=== PATIENT | female | born 1990 | race Caucasian/White ===

== ENCOUNTER → 2021-07-26 13:22 | Outpatient (CLI) | payer BC, SELFPAY ==
--- NOTE | ~2021-07-26 | US_ITS ---
EXAMINATION: US OB <= 14 weeks fetus DATE: 07/26/2021 13:56 INDICATION: First trimester dating TECHNIQUE: Real-time pelvic transabdominal and transvaginal ultrasound was performed. COMPARISON: None. FINDINGS: The uterus measures 16.1 x 5.8 x 9.9 cm. There is an intrauterine gestational sac. h eart motion is identified measuring 154 beats per minute (bpm) by M-mode Doppler. The crown rum p length measures 5.7 cm , which correlates with an estimated gestational age of 12 weeks and 2 day(s ) (+/-) 8 day(s). The right ovary measures 4.3 x 3.4 x 3.5 cm. The left ovary measures 2.8 x 1.8 x 2.3 cm. There is nor mal vascular flow in the ovaries. There is no free fluid in the pelvis. IMPRESSION: 1. Live intrauterine with an estimated gestational age of 12 weeks and 2 day(s) (+/-) 8 day (s) and an estimated delivery date of 02/05/2021. Reviewed, dictated and finalized at location F. TIVE TECHNOLOGIST IMPRESSION: 1. Live intrauterine with an estimated gestational age of 12 weeks an d 2 day(s) (+/-) 8 day(s) and an estimated delivery date of 02/05/2021.
== END ==
PROVIDERS: Visit Provider Obstetrics & Gynecology Gynecology
DX: Z34.91 Encounter for supervision of normal pregnancy, unspecified, first trimester (principal); Z3A.12 12 weeks gestation of pregnancy
CPT/HCPCS: 76801

== ENCOUNTER → 2021-08-30 14:44 | Outpatient (CLI) | payer BC, SELFPAY ==
--- NOTE | ~2021-08-30 | US_ITS ---
EXAMINATION: US OB /maternal detail DATE: 08/30/2021 15:16 INDICATION: Assess anatomy during second trimester TECHNIQUE: Multiple obstetric sonographic images performed. FINDINGS: There is a single living fetus in variable presentation. The placenta is anterior and not low-lying caudal margin 2.8 cm from the internal cervical os. Normal amniotic fluid volume. heart rate o f 153 beats per minute. The following anatomy was identified as normal: Ventricles, choroid plexus, falx and cava septum pellucidum Cerebellum and cisterna magna Nuchal fold Upper lip Spine 4 chamber heart. (Left and right ventricular outflow tracts were unable to be clearly delineated) Diaphragm The stomach was unable to be clearly visualized and may have been decompressed Kidneys Bladder 3 vessel cord and cord insertion Bilateral upper and lower extremities including hands and feet The following biometric data were obtained: BPD: 4.1 cm -> 18 weeks 2 days Head circumference: 15.7 cm -> 18 weeks 4 days Abdominal circumference: 12.6 cm -> 18 weeks 1 days Femur length: 2.7 cm -> 18 weeks 2 days These measurements are concordant. Head circumference to abdominal circumference ratio: 1.25 (normal range 1.08-1.27). Estimated weight: 233 g (+/-) 35 g. or 8 oz. (+/-) 1 oz. IMPRESSION: 1. Single living fetus with variable presentation with heart rate of 153 bpm. 2. Estimated weight is 95th percentile by Hadlock criteria when 02/05/2022 is used as the ONDINA b ased upon crown-rump length measurement on prior ultrasound dated 07/26/2021. Please correlate with c linical information or earlier ultrasounds for most accurate ONDINA. 3. Nonvisualized stomach and left and right ventricular outflow tract views. Otherwise normal a natomic survey. Reviewed, dictated and finalized at location A. FINISHER IMPRESSION: 1. Single living fetus with variable presentation with heart rate of 153 bpm. 2. Estimated weight is 95th percentile by Hadlock criteria when 2 is used as the ONDINA based upon crown-rump length measurement on prior ultrasou nd dated 07/26/2021. Please correlate with clinical information or earlier ultr asounds for most accurate ONDINA. 3. Nonvisualized stomach and left and right ventricular outflow tract views. Ot herwise normal anatomic survey.
== END ==
PROVIDERS: Visit Provider Nurse Practitioner
DX: Z34.92 Encounter for supervision of normal pregnancy, unspecified, second trimester (principal); Z3A.18 18 weeks gestation of pregnancy
CPT/HCPCS: 76805

== ENCOUNTER → 2021-10-03 12:58 | Outpatient (CLI) | payer BC, SELFPAY ==
--- NOTE | ~2021-10-03 | US_ITS ---
EXAMINATION: US OB follow up DATE: 10/03/2021 13:19 INDICATION: Incomplete anatomic survey during second trimester TECHNIQUE: Real-time ultrasound of the pelvis was performed. The interpreting radiologist was not pre sent for the study. COMPARISON: 08/30/2021 FINDINGS: There is a single living fetus in vertex presentation. The placenta is anterior and 7.5 cm from the internal cervical os. cardiac activity and movement are noted. heart rate is 133 beats per minute (bpm). The amniotic fluid index is subjectively normal. The heart, diap hragm, and stomach appear normal. The following biometric data were obtained: Biparietal diameter (BPD): 5.7 cm; head circumference (HC): 21.0 cm; abdominal circumference (AC): 17 .1 cm; femur length (FL): 3.6 cm. Head circumference to abdominal circumference ratio is greater than two standard deviations above the mean. These measurements are otherwise. Estimated weight is 473 g +/- 70 g, which correlates with the 40th percentile when 02/05/2022 is used as estimated date of delivery. As single measurements, these parameters are each equal to the following estimated gestational ages w ith ranges of +/- 2 standard deviations: BPD: 23 weeks 4 days ( 21 weeks 26 days - 25 weeks 2 days). HC: 23 weeks 1 days ( 21 weeks 5 days - 24 weeks 4 days). AC: 22 weeks 1 days ( 20 weeks 0 days - 24 weeks 1 days). FL: 21 weeks 4 days ( 19 weeks 6 days - 23 weeks 3 days). estimated gestational age based solely on measurements from this exam is 22 weeks 4 days +/- 1 weeks 4 days. IMPRESSION: 1. Single living fetus in vertex presentation. 2. Estimated weight is 473 g +/- 70 g, which correlates with the 40th percentile when 02/05/2022 is used as estimated date of delivery. 3. Head circumference to abdominal circumference ratio is greater than two standard deviations above the mean. 4. Normal appearing heart, stomach, and diaphragm. Reviewed, dictated and finalized at location B. PMENT SERVICE LEAD IMPRESSION: 1. Single living fetus in vertex presentation. 2. Estimated weight is 473 g +/- 70 g, which correlates with the 40th per centile when 02/05/2022 is used as estimated date of delivery. 3. Head circumference to abdominal circumference ratio is greater than two german dard deviations above the mean. 4. Normal appearing heart, stomach, and diaphragm.
== END ==
PROVIDERS: Visit Provider Obstetrics & Gynecology Gynecology
DX: Z36.2 Encounter for other antenatal screening follow-up (principal); Z3A.22 22 weeks gestation of pregnancy
CPT/HCPCS: 76816

== ENCOUNTER 2021-11-15 13:57 | Outpatient (CLI) | payer BC, SELFPAY ==
[2021-11-15 15:57] LABS: Hematocrit 37.7 % (37.0-47.0)
[2021-11-15 16:13] LABS: Glucose 1 Hour PP 50gm Dose 120 mg/dL
[2021-11-15 16:48] LABS: HIV 1/2 Ab P24 Ag Result Negative (Negative)
[2021-11-15 20:07] LABS: Vitamin D 25 Hydroxy 42.5 ng/mL
== END 2021-11-15 13:58 | disposition home or self-care (01) ==
LOC: ANHLAB 13:59
PROVIDERS: Visit Provider Nurse Practitioner
DX: Z34.92 Encounter for supervision of normal pregnancy, unspecified, second trimester (principal); Z3A.00 Weeks of gestation of pregnancy not specified
CPT/HCPCS: 36415; 82306; 82947; 85014; 85018; 85461; 86703; G0432

== ENCOUNTER 2021-11-24 13:02 | Observation (INO) | payer BC, SELFPAY ==
[2021-11-24] VITALS (36 sets, daily range): BP systolic 111–131; BP diastolic 49–72; PULSE 73–124; TEMP 36.8–37; O2SAT 97–100; BMI 39.7
--- NOTE | 2021-11-24 13:42 | OBADM ---
This patient, Bailey Campos, admitted to the OB room 113 for observation for contractions and nausea. Patient/family oriented to hospital policies and general routines including ID bracelet, bed and alarms, visiting hours, pain management, procedures, bathroom and other care routines, personal items, smoking policy, room service/diet, and visiting hours. Patient/Family are encouraged to report perceived risks to care and to ask questions if they do not understand what they are told or what they should do.
[2021-11-24 13:56] LABS: Add Urine Microscopic? YES; Appearance Urine Cloudy (Clear); Bilirubin Urine Negative (Negative); Blood Urine Negative (Negative); Color Urine Yellow (Yellow); Glucose Urine UA Negative (Negative); Ketones Urine Negative (Negative); Leukocyte Esterase Ur Negative LEU/UL (Negative); Mucus Urine Rare /lpf; Nitrate Urine Negative (Negative); Protein Urine Negative (Negative); RBC Urine 0-2 /hpf (0-2); Specific Grav Ur 1.011 (1.001-1.035); Squamous Epithelial Cell Urine Few /hpf (Few); Urobilinogen Urine Negative mg/dL (<2.0); WBC Urine 0-3 /hpf
--- NOTE | 2021-11-24 14:02 | PC.NURSE ---
Dr. Weir returned page and informed of pt's symptoms, frequent mild contractions and uterine irritability, UA results. Pt hasn't felt like drinking much today due to her nausea. Orders received.
[2021-11-24] MEDS: TERBUTALINE SULFATE 1 MG/ML VIAL 0.25 MG SUB-Q ×2 (14:32→16:26)
[2021-11-24] MEDS: LACTATED RINGERS 1,000 ML 999 ML IV CONT (14:54)
[2021-11-24] MEDS: ONDANSETRON INJ 4 MG/2 ML VIAL IV PUSH (14:55)
--- NOTE | 2021-11-24 15:35 | PC.NURSE ---
Nausea much better. Popcicle, water, and saltines given.
[2021-11-24] MEDS: LACTATED RINGERS 1,000 ML 150 ML IV CONT (16:03)
--- NOTE | 2021-11-24 16:50 | PC.NURSE ---
Dr. Weir called the unit and updated that pt is feeling better, but was recently given a 2nd dose of Brethine due to an increase in uterine activity even after pt had voided.
--- NOTE | 2021-11-28 13:52 | PM.OBTRLD ---
OB - Triage/Final Diagnosis Visit Information Reason for evaluation: threatened labor Comments/Additional reasons for admission: I have assessed the risk for this patient, Bailey Campos, and determined that she would benefit from observation care. Evaluation Laboratory results: Laboratory Tests 11/24/21 13:33 Urine Color Yellow Urine Appearance Cloudy H Urine pH 7.0 Ur Specific [place] 1.011 Urine Protein Negative Urine Glucose (UA) Negative Urine Ketones Negative Ur Blood (Man) Negative Urine Nitrate Negative Urine Bilirubin Negative Urine Urobilinogen Negative Leukocyte Esterase Rfl Negative Urine RBC 0-2 Urine WBC 0-3 Ur Squamous Epith Cells Few Urine Mucus Rare
== END 2021-11-24 20:29 | disposition home or self-care (01) ==
PROVIDERS: Admitting Provider Obstetrics & Gynecology Gynecology; Visit Provider Obstetrics & Gynecology Gynecology
DX: O47.03 False labor before 37 completed weeks of gestation, third trimester (principal); Z3A.30 30 weeks gestation of pregnancy
CPT/HCPCS: 81001; 96361; 96372; 96374; G0378; G0379; J2405; J3105; J7120

== ENCOUNTER 2021-12-05 08:16 | Outpatient (RCR) | payer BC, SELFPAY ==
[2021-12-05] MEDS: RHO(D) IMMUNE GLOBULIN 300 MCG/2 ML SYRINGE IM (12:18)
== END 2022-02-22 08:37 | disposition home or self-care (01) ==
LOC: ANHLAB 08:16
PROVIDERS: Visit Provider Obstetrics & Gynecology Gynecology
DX: O36.0990 Maternal care for other rhesus isoimmunization, unspecified trimester, not applicable or unspecified (principal); Z3A.00 Weeks of gestation of pregnancy not specified
CPT/HCPCS: 36415; 85461; 90384; 96372; J2790

== ENCOUNTER 2022-01-23 15:23 | Observation (INO) | payer BC, SELFPAY ==
[2022-01-23 15:34] VITALS: BP 116/68; PULSE 82; RESP 17; TEMP 36.3
[2022-01-23 17:45] VITALS: BMI 40.1
--- NOTE | 2022-01-23 17:46 | LDADM ---
This patient, Bailey Campos, was admitted to Labor/Delivery/Recovery 108 on 01/23/22 at 15:23. Plans for labor, pain management and were discussed with patient. Patient/family oriented to hospital policies and general routines including ID bracelet, bed and alarms, visiting hours, pain management, procedures, bathroom and other care routines, personal items, smoking policy, room service/diet and guest tray routines, security routines, and visiting hours. Patient/Family are encouraged to report perceived risks to care and to ask questions if they do not understand what they are told or what they should do. See OBIX for further documentation.
--- NOTE | 2022-01-26 07:51 | PM.OBTRLD ---
OB - Triage/Final Diagnosis Visit Information Reason for evaluation: threatened labor Comments/Additional reasons for admission: I have assessed the risk for this patient, Bailey Campos, and determined that she would benefit from observation care.
== END 2022-01-23 18:00 | disposition home or self-care (01) ==
PROVIDERS: Admitting Provider Obstetrics & Gynecology Gynecology; Visit Provider Obstetrics & Gynecology Gynecology
DX: O47.9 False labor, unspecified (principal); Z3A.00 Weeks of gestation of pregnancy not specified
CPT/HCPCS: G0378; G0379

== ENCOUNTER 2022-01-26 21:46 | Observation (INO) | payer BC, SELFPAY ==
[2022-01-26 22:05] VITALS: BP 116/70; PULSE 87
[2022-01-26 22:16] VITALS: BP 110/59; PULSE 81
[2022-01-26 22:30] VITALS: BMI 40.1
[2022-01-26 22:31] VITALS: BP 110/60; PULSE 78
[2022-01-26 22:49] LABS: Basophils Absolute Auto 0.1 K/mm3 (0.0-0.1); Basophils Percent Auto 0.3 % (0.2-1.2); Eosinophils Absolute Auto 0.1 K/mm3 (0-0.3); Eosinophils Percent Auto 0.9 % (0-4.4); Hematocrit 35.2 % (37.0-47.0); Hemoglobin 11.6 g/dL (12.0-15.0); Immature Granulocyte Absolute 0.11 K/mm3 (0.00-0.031); Immature Granulocyte Percent A 0.7 % (0-0.5); Lymphocytes Absolute Auto 3.42 K/mm3 (0.9-3.2); Lymphocytes Percent Auto 22.9 % (18.3-44.2); Mean Corpuscular Hemoglobin 27.2 pg (26-34); Mean Corpuscular Volume 82.4 fl (80-100); Mean Platelet Volume 9.7 fl (7.4-10.4); Monocytes Absolute Auto 1.2 K/mm3 (0.1-0.6); Monocytes Percent Auto 7.8 % (2.6-8.5); Neutrophils Absolute Auto 10.1 K/mm3 (1.3-6.7); Neutrophils Percent Auto 67.4 % (45.5-73.1); Platelet Count Result 315 k/mm3 (150-375); Red Blood Count 4.27 M/mm3 (4.2-5.4); Red Cell Distribution Width 13.5 % (11.5-14.5); White Blood Count 14.9 K/mm3 (4.5-10.0)
--- NOTE | 2022-01-27 01:59 | P.PNOB_ITS ---
OB - Triage/Final Diagnosis Visit Information Reason for evaluation: other (; fell) Comments/Additional reasons for admission: I have assessed the risk for this patient, Bailey Campos, and determined that she would benefit from observation care. Evaluation Laboratory results: Laboratory Tests 01/26/22 01/26/22 22:32 22:32 WBC 14.9 H RBC 4.27 Hgb 11.6 L Hct 35.2 L MCV 82.4 MCH 27.2 MCHC 33.0 RDW 13.5 Plt Count 315 MPV 9.7 Immature Gran % (Auto) 0.7 H Neut % (Auto) 67.4 Lymph % (Auto) 22.9 [place] % (Auto) 7.8 Eos % (Auto) 0.9 Baso % (Auto) 0.3 Lymph # (Auto) 3.42 H [place] # (Auto) 1.2 H Eos # (Auto) 0.1 Baso # (Auto) 0.1 Abs Immat Gran (auto) 0.11 H Absolute Neuts (auto) 10.1 H Absolute Nucleated RBC 0.0 Nucleated RBC % 0.0 Blood Type O Negative Antibody Screen Negative Screen Not Reportable Baby's Blood Type Not Reportable Baby's JANET Not Reportable KB Hemoglobin Negative Doses of RhIg Required 1 Vital signs: Vital Signs - 24 hr 01/26/22 22:05 01/26/22 22:16 01/26/22 22:31 Pulse Rate 87 81 78 Blood Pressure 116/70 110/59 L 110/60
--- NOTE | 2022-01-27 03:17 | OBADM ---
This patient, Bailey Campos, admitted to the OB room OB Post 116 for observation. Patient/family oriented to hospital policies and general routines including ID bracelet, bed and alarms, visiting hours, pain management, procedures, bathroom and other care routines, personal items, smoking policy, room service/diet, and visiting hours. Patient/Family are encouraged to report perceived risks to care and to ask questions if they do not understand what they are told or what they should do.
== END 2022-01-27 03:30 | disposition home or self-care (01) ==
PROVIDERS: Admitting Provider Obstetrics & Gynecology Gynecology; Visit Provider Obstetrics & Gynecology Gynecology
DX: Z04.3 Encounter for examination and observation following other accident (principal); Z3A.39 39 weeks gestation of pregnancy; W19.XXXA Unspecified fall, initial encounter
CPT/HCPCS: 36415; 85025; 85460; 85461; 90384; 96372; G0378; G0379; J2790

== ENCOUNTER 2022-01-31 18:09 | Inpatient (IN) | payer BC, SELFPAY ==
[2022-01-31] VITALS (41 sets, daily range): BP systolic 108–131; BP diastolic 47–84; PULSE 63–102; RESP 16–18; TEMP 36.5–36.7; O2SAT 98–100; BMI 40.1
--- NOTE | 2022-01-31 18:55 | LDADM ---
This patient, Bailey Campos, was admitted to Labor/Delivery/Recovery 107 on 01/31/22 at 18:09. Plans for labor, pain management and were discussed with patient. Patient/family oriented to hospital policies and general routines including ID bracelet, bed and alarms, visiting hours, pain management, procedures, bathroom and other care routines, personal items, smoking policy, room service/diet and guest tray routines, security routines, and visiting hours. Patient/Family are encouraged to report perceived risks to care and to ask questions if they do not understand what they are told or what they should do. See OBIX for further documentation.
[2022-01-31 19:10] LABS: Basophils Percent Auto 0.2 % (0.2-1.2); Eosinophils Absolute Auto 0.1 K/mm3 (0-0.3); Eosinophils Percent Auto 0.6 % (0-4.4); Hematocrit 38.3 % (37.0-47.0); Hemoglobin 12.3 g/dL (12.0-15.0); Immature Granulocyte Absolute 0.08 K/mm3 (0.00-0.031); Immature Granulocyte Percent A 0.5 % (0-0.5); Lymphocytes Absolute Auto 3.12 K/mm3 (0.9-3.2); Lymphocytes Percent Auto 20.6 % (18.3-44.2); Mean Corpuscular HGB Conc 32.1 g/dl (32-36); Mean Corpuscular Hemoglobin 26.7 pg (26-34); Mean Corpuscular Volume 83.3 fl (80-100); Mean Platelet Volume 10.4 fl (7.4-10.4); Monocytes Absolute Auto 0.9 K/mm3 (0.1-0.6); Monocytes Percent Auto 6.1 % (2.6-8.5); Neutrophils Absolute Auto 10.9 K/mm3 (1.3-6.7); Platelet Count Result 334 k/mm3 (150-375); Red Cell Distribution Width 13.8 % (11.5-14.5); White Blood Count 15.1 K/mm3 (4.5-10.0)
[2022-01-31] MEDS: miSOPROStol 25 MCG TABLET VAGINAL (19:50)
--- NOTE | 2022-01-31 22:53 | WPDANESEPP ---
Anes - Eval Pre Procedure Procedure: labor epidural Date/Time: 01/31/22 22:53 Surgeon: alissa Pre Op Diagnosis: Induction of Labor Patient Data Age: 31 Gender: F Height: 1.63 m Weight: 106 kg Last Vital Signs Temp 36.6 C 01/31/22 19:00 Pulse 82 01/31/22 22:31 BP 116/65 01/31/22 22:31 O2 Del Method Room Air 01/31/22 18:51 Allergies Allergy/AdvReac Type Severity Reaction Status Date / Time No Known Allergies Allergy Verified 11/24/21 13:40 Home Medications Medication Instructions Recorded Confirmed Type ergocalciferol (vitamin D2) 1,250 50,000 unit PO WEEKLY 11/24/21 01/31/22 History mcg (50,000 unit) capsule vit no.95-ferrous 1 tablet PO DAILY 11/24/21 01/31/22 History fumarate 28 mg-folic acid 800 mcg tablet () Laboratory Tests 01/31/22 01/31/22 01/31/22 18:47 18:47 19:45 WBC 15.1 K/mm3 H K/mm3 (4.5-10.0) RBC 4.60 M/mm3 M/mm3 (4.2-5.4) Hgb 12.3 g/dL g/dL (12.0-15.0) Hct 38.3 % % (37.0-47.0) MCV 83.3 fl fl (80-100) MCH 26.7 pg pg (26-34) MCHC 32.1 g/dl g/dl (32-36) RDW 13.8 % % (11.5-14.5) Plt Count 334 k/mm3 k/mm3 (150-375) MPV 10.4 fl fl (7.4-10.4) Immature Gran % (Auto) 0.5 % % (0-0.5) Neut % (Auto) 72.0 % % (45.5-73.1) Lymph % (Auto) 20.6 % % (18.3-44.2) [place] % (Auto) 6.1 % % (2.6-8.5) Eos % (Auto) 0.6 % % (0-4.4) Baso % (Auto) 0.2 % % (0.2-1.2) Lymph # (Auto) 3.12 K/mm3 K/mm3 (0.9-3.2) [place] # (Auto) 0.9 K/mm3 H K/mm3 (0.1-0.6) Eos # (Auto) 0.1 K/mm3 K/mm3 (0-0.3) Baso # (Auto) 0.0 K/mm3 K/mm3 (0.0-0.1) Abs Immat Gran (auto) 0.08 K/mm3 H K/mm3 (0.00-0.031) Absolute Neuts (auto) 10.9 K/mm3 H K/mm3 (1.3-6.7) Absolute Nucleated RBC 0.0 K/mm3 K/mm3 (0.0-0.012) Nucleated RBC % 0.0 % % (0.0-0.2) RPR Pending Blood Type O Negative Antibody Screen Positive Antibody Identification Pending Antigen Identification Pending JANET, IgG Interpret Pending JANET, Poly Interpret Pending JANET, Complement Interp Pending Patient hx anesthesia problems: none Family hx anesthesia problems: none Results Review: All pre-operative results and documents have been reviewed as part of the pre-operative evaluation. [facility] Family History Family History (Updated 01/05/22 @ 14:36 by Mukesh Canseco RN) Mother Cancer Hypotension Grandparent Diabetes mellitus Social History Social History Smoking status: Former smoker Tobacco type: cigarettes Second hand tobacco smoke exposure: No Smoking end date: 05/29/21 Substance use: never Spiritual care concerns: No Exam Day of Procedure 01/31/22 22:53
[2022-01-31] MEDS: LACTATED RINGERS 1,000 ML 125 ML IV CONT (22:55)
[2022-02-01] VITALS (356 sets, daily range): BP systolic 43–145; BP diastolic 16–101; PULSE 40–190; RESP 14–18; TEMP 36.2–37.7; O2SAT 90–100
[2022-02-01] MEDS: LACTATED RINGERS 1,000 ML 125 ML IV CONT ×5 (00:13→17:49)
[2022-02-01] MEDS: ONDANSETRON INJ 4 MG/2 ML VIAL IV PUSH ×3 (00:22→18:29)
[2022-02-01] MEDS: OXYTOCIN 30 UNITS/NS 500 ML 30 UNITS/500 ML BAG IV CONT (01:40)
[2022-02-01 01:53] LABS: Barbiturate Screen Urine Negative (Negative); Benzodiazepines Screen Urine Negative (Negative)
[2022-02-01 02:12] LABS: Amphetamine Screen Urine Negative (Negative); Cannabinoid Screen Urine Positive (Negative); Cocaine Screen Urine Negative (Negative); Methadone Screen Urine Negative (Negative); Opiate Screen Urine Negative (Negative); Phencyclidine Screen Urine Negative (Negative)
[2022-02-01 06:02] LABS: Rapid Plasma Reagin Non-Reactive (NonReactive)
[2022-02-01] MEDS: ACETAMINOPHEN 500 MG TABLET 1000 MG PO (08:01)
--- NOTE | 2022-02-01 09:14 | WPDOBADMIT ---
Obstetrics - Admit Note Admission Note: record reviewed. No pertinent additions to the history and/or any subsequent changes in the physical findings that are not consistent with the expected course of the were found. Additions to the history and/or subsequent changes in the physical findings follow. None.
--- NOTE | 2022-02-01 09:15 | PM.OBPNLAB ---
Pain Control Date/time seen: 02/01/22 09:10 Pain control: tolerating well and epidural Comments: Having occasional lower abdominal cramping. Pelvic Exam Comments: SROM overnight, clear fluid. Last exam 3cm per RN but very anterior. Contractions Monitor mode: Internal Contraction pattern: Regular Contraction intensity: Moderate Status status: Category ll Assessment and Plan Pitocin rate (mU/min): 4 Comments: Pt resting on her left side with peanut ball between her knees. Partner present. Epidural infusing. FHTs Cat 2 with occasional variable deceleration. Reassured by moderate variability and accelerations. Cervix quite anterior per RN's last exam. Recommend frequent position changes every 20-30 minutes when possible and upright positioning as long as tracing is reassuring. Plan to titrate pitocin as needed to maintain adequate contraction pattern. Anticipate vaginal .
--- NOTE | 2022-02-01 21:00 | PM.IMHP ---
H&P: HPI History of Present Illness Date/Time: 02/01/22 2100 Chief Complaint: Failure to descend. Review of Systems Review of Systems: All systems reviewed & are unremarkable except as noted in HPI and below Constitutional: Constitutional: Reports no additional constitutional complaints [facility] Family History Family History (Updated 01/05/22 @ 14:36 by Mukesh Canseco RN) Mother Cancer Hypotension Grandparent Diabetes mellitus Social History Social History Smoking status: Former smoker Tobacco type: cigarettes Second hand tobacco smoke exposure: No Smoking end date: 05/29/21 Substance use: never Spiritual care concerns: No Meds Home Medications and Allergies Home Medications Medication Instructions Recorded Confirmed Type ergocalciferol (vitamin D2) 1,250 50,000 unit PO WEEKLY 11/24/21 01/31/22 History mcg (50,000 unit) capsule vit no.95-ferrous 1 tablet PO DAILY 11/24/21 01/31/22 History fumarate 28 mg-folic acid 800 mcg tablet () hydrocodone 5 mg-acetaminophen 325 1 tablet PO Q3H PRN Moderate Pain 02/03/22 Rx mg tablet (4-6) #30 tabs ibuprofen 600 mg tablet 600 mg PO Q6H PRN Cramping #30 tabs 02/03/22 Rx Allergies Allergy/AdvReac Type Severity Reaction Status Date / Time No Known Allergies Allergy Verified 11/24/21 13:40 Vital Signs stable Exam Const: General: no acute distress Resp: Effort & Inspection: normal respiratory effort Cardio: Rate: regular rate : External Female Exam: normal external appearance Skin: General skin exam: normal color Neuro: Other: Decreased sensation to BLE d/t epidural infusion. Extrem: General: normal to inspection Psych: Mental Status: mental status grossly normal Assessment and Plan Assessment and plan (1) Rh negative status during : Code(s): O26.899 - Other specified related conditions, unspecified trimester; Z67.91 - Unspecified blood type, Rh negative Status: Acute (2) Depression: Code(s): F32.A - Depression, unspecified Status: Acute (3) Anxiety: Code(s): F41.9 - Anxiety disorder, unspecified Status: Acute Plan Pt pushed with contractions once fully dilated. station remained 0 with no descent despite multiple attempts at repositioning. Plan for delivery.
--- NOTE | 2022-02-01 21:25 | PM.OBPNLAB ---
Pain Control Date/time seen: 02/01/222057 Pain control: epidural Comments: Feeling much pelvic pain and pressure. No abdominal pain Pelvic Exam Dilation (cm): 10 station: 0 Amniotic membrane status: Ruptured Contractions Monitor mode: Internal Contraction pattern: Regular Contraction intensity: Moderate Status status: Category ll Assessment and Plan Pitocin rate (mU/min): 8 Comments: Arrived at 2019. Pt feeling the urge to push. head at 0 station. Pushed in lithotomy and side lying. There was not change in station. Repositioned to hands and knees for several minutes. Pt resting through contractions. Comfort measures utilized to ease pressure. Returned to supine position and pushed with contractions. There was no descent during this time. Pt desires to continue pushing. Called Dr. Urias and updated MD on current status. Plan to try few more positions and evaluate for descent.
--- NOTE | 2022-02-01 21:34 | WPDANESEPP ---
Anes - Eval Pre Procedure Procedure: Operation Date: 02/01/22 21:30 Proposed Procedures p Section - Fuentes Urias MD Date/Time: 02/01/22 21:34 Surgeon: mariela Pre Op Diagnosis: Induction of Labor Patient Data Age: 31 Gender: F Height: 1.63 m Weight: 106 kg Last Vital Signs Temp 37.7 C H 02/01/22 21:12 Pulse 190 H 02/01/22 21:33 Resp 14 02/01/22 00:00 BP 132/76 02/01/22 21:33 Pulse Ox 98 02/01/22 21:28 O2 Del Method Room Air 01/31/22 18:51 Allergies Allergy/AdvReac Type Severity Reaction Status Date / Time No Known Allergies Allergy Verified 11/24/21 13:40 Home Medications Medication Instructions Recorded Confirmed Type ergocalciferol (vitamin D2) 1,250 50,000 unit PO WEEKLY 11/24/21 01/31/22 History mcg (50,000 unit) capsule vit no.95-ferrous 1 tablet PO DAILY 11/24/21 01/31/22 History fumarate 28 mg-folic acid 800 mcg tablet () Laboratory Tests 01/31/22 01/31/22 02/01/22 18:47 19:45 01:16 Urine Opiates Screen Negative (Negative) Urine Methadone Screen Negative (Negative) Ur Barbiturates Screen Negative (Negative) Ur Phencyclidine Scrn Negative (Negative) Ur Amphetamine Screen Negative (Negative) U Benzodiazepines Scrn Negative (Negative) Urine Cocaine Screen Negative (Negative) U Cannabinoids Screen Positive A (Negative) RPR Non-reactive (NonReactive) Blood Type O Negative Antibody Screen Positive Antibody Identification Passive Due to RH Imm Glob Antigen Identification Cancelled JANET, IgG Interpret Not Performed JANET, Poly Interpret Neg JANET, Complement Interp Not Performed Patient hx anesthesia problems: none Family hx anesthesia problems: none Results Review: All pre-operative results and documents have been reviewed as part of the pre-operative evaluation. [facility] Family History Family History (Updated 01/05/22 @ 14:36 by Mukesh Canseco RN) Mother Cancer Hypotension Grandparent Diabetes mellitus Social History Social History Smoking status: Former smoker Tobacco type: cigarettes Second hand tobacco smoke exposure: No Smoking end date: 05/29/21 Substance use: never Spiritual care concerns: No Exam Day of Procedure 02/01/22 21:34
--- NOTE | 2022-02-01 21:38 | PM.OBPNLAB ---
Pain Control Date/time seen: 02/01/22 21:20 Pelvic Exam Dilation (cm): 10 station: 0 Amniotic membrane status: Ruptured Contractions Monitor mode: Internal Contraction pattern: Regular Contraction intensity: Moderate Status status: Category ll Comments: Reassured by moderate variability. Assessment and Plan Comments: Attempted side lying release on left and right sides with pt but she was unable to tolerate d/t pain. Pushed with 2 additional contractions but there was no descent of the head. head remains at 0 station. Discussed options with Bailey and her partner. Discussed FHT tracing, station, maternal pain and energy level. Pt desires delivery at this time. Called Dr. Urias and discussed findings. MD will come for delivery.
--- NOTE | 2022-02-01 21:42 | PM.OBDSVD ---
DS: Admitting Diagnosis Discharge Date 02/04/22 Admitting Diagnosis IUP at 39 weeks. Anxiety and Depression Rh negative status. DS: Discharge Diagnosis Discharge Diagnosis (1) delivery, delivered, current hospitalization: Code(s): O82 - Encounter for delivery without indication Status: Acute (2) Anxiety: Code(s): F41.9 - Anxiety disorder, unspecified Status: Acute (3) Depression: Code(s): F32.A - Depression, unspecified Status: Acute (4) Rh negative status during : Code(s): O26.899 - Other specified related conditions, unspecified trimester; Z67.91 - Unspecified blood type, Rh negative Status: Acute OB - DS: Summary Hospital Course Hospital Course: Uncomplicated OB Procedures : Ultrasound OB Procedures Intrapartum: low cervical, transverse OB Procedures: : RHo (D) lg Peripartum Data Infant Delivery Method: Section (Failure to descend) Procedures: Procedures Operation Date: 02/01/22 21:30 <No data on this case meets the specified criteria> Status at Discharge Functional status at discharge: independent ambulation Time Spent with Patient Time attestation: Total time spent providing and/or coordinating discharge services: DS: Data Data Completed and Pending Labs on day of discharge: Labs from last 24 hours 02/01/22 01/31/22 01/31/22 01:16 19:45 18:47 Urine Opiates Screen Negative Urine Methadone Screen Negative Ur Barbiturates Screen Negative Ur Phencyclidine Scrn Negative Ur Amphetamine Screen Negative U Benzodiazepines Scrn Negative Urine Cocaine Screen Negative U Cannabinoids Screen Positive A RPR Non-reactive Blood Type O Negative Antibody Screen Positive Antibody Identification Passive Due to RH Imm Glob Antigen Identification Cancelled JANET, IgG Interpret Not Performed JANET, Poly Interpret Neg JANET, Complement Interp Not Performed Discharge Plan Discharge Discharging Clinician: Kandice Chino Anticipated Discharge Date/Time: 02/05/22 21:46 Patient Disposition: Home, Self-Care Activity: may shower, no straining, may drive after 2 weeks and pelvic rest Diet: as tolerated and regular Wound Care Instructions: incision open to air Discharge Instructions: Education: Mom and Baby Guide Given to: Mother Follow-Up: Call your delivering provider's office for an appointment to be seen in: 2 Weeks Mom and baby should come to the [facility] for the follow-up appointment. Appointment Date/Time: February 07, 2022 at 11:00 am What to expect at your follow-up visit: Physical Assessment Removal of Bindu Call [phone] if you are unable to keep your appointment time. BREAST CARE: * Wear a snug supportive bra. * For engorgement discomfort: Breast Feeding: * Apply warm moist washcloths * Express milk as needed to relieve engorgement * Wear loose clothing * For sore nipples: * Identify correct latch-on * Apply warm moist washcloths before and after nursing * Air dry nipples after nursing * May apply Lansinoh cream to nipples ABDOMINAL INCISION: (if applicable) * Allow incision to air dry * Do NOT use lotions for powders on your incision * When showering, allow soap and water to run over the incision, but do not wash incision EPISIOTOMY/PERINEAL CARE: * Until bleeding stops, use your estela bottle after urinating * Change your pad frequently throughout the day * No tub baths until seen by your physician - You may shower ACTIVITY: * Rest as much as possible. * Do not exercise or lift anything heavier than your baby (such as laundry or other children.) * Avoid stairs or driving as much as possible. * Do not put anything into the vagina. No douching, tampons, or sexual activity until seen by physician.
--- NOTE | 2022-02-01 22:37 | PM.OBPRVD ---
OB - Delivery Note Procedure Procedure: Procedures Operation Date: 02/01/22 21:30 <No data on this case meets the specified criteria> Intrapartal Events: Arrest of Descent Induction method: AROM and Per Pitocin Protocol Route of delivery: Prior to decision for section, ACOG/SMFM labor guidelines were considered and discussed with the patient and staff. Decision made to proceed with the section.: Yes Specimen: Yes (Placenta) Quantitative Blood Loss (ml): 645 Anesthesia type: Epidural Disposition: Floor Complications: none Narrative: patient prepped and draped usual sterile manner for this procedure. After anesthesia was deemed to be adequate Pfannenstiel incision was made and carried down to the fascia and the fascial incision was extended bilaterally the length of the skin incision. Superior and inferiorly the fascia was dissected away from the rectus muscles and the peritoneum was entered without difficulty bladder flap was developed. Uterus scored with clear fluid noted and extended bilaterally length of the lower segment. Vertex was then delivered in an occiput posterior is to transverse position with nuchal cord noted. Rest of baby was delivered without difficulty the baby was passed off the operative field to the pediatric team in attendance. Uterus was exteriorized after the placenta had been manually removed. Extension in the right lower portion of the uterine incision as well as the left lower ports the uterine incision was noted. Both of these extensions were rendered hemostatic and approximated using 0 Monocryl in a running interlocking manner from the apex of the extension back to the initial uterine incision. This was done again bilaterally with good approximation hemostasis noted. The original uterine incision was then closed using 0 Monocryl running interlocking manner with good approximation hemostasis noted. The incision was evaluated and noted to continue to be hemostatic after the uterus was returned to the abdomen there was no pressure. Empirically Hemabate and a piece of Gelfoam were placed in this area. Fascia was then approximated using 0 Vicryl from left angle to midline in the right angle to midline good approximation noted. Subcutaneous tissue was approximated 0 plain suture and vasu were used to approximate the skin edges. The Zazueta was noted be slightly pink tinged in the bag but in the tubing was clear to yellow. No significant bleeding vaginally and the patient then was sent to the recovery room in stable condition. Baby Weeks of gestation at delivery: 40 gender: Male Weight (pounds): 7 Weight (ounces): 2 presentation: vertex position: Right Occiput Posterior Placenta delivery description: Manual Removal Cord Vessel Description: 3 Vessels score one minute: 4 score five minutes: 8 AMG Delivery Billing Delivery Delivery: Delivery Charge
[2022-02-01] MEDS: OXYTOCIN 30 UNITS/NS 500 ML 30 UNITS/500 ML BAG 125 UNITS IV CONT (23:59)
[2022-02-02] VITALS (29 sets, daily range): BP systolic 95–122; BP diastolic 46–69; PULSE 60–94; RESP 14–73; TEMP 35.8–36.9; O2SAT 97–100
[2022-02-02] MEDS: HYDROcodone/acetaminophen (*CRX) 5-325 MG TABLET 1 TAB PO ×2 (01:39→09:22)
[2022-02-02] MEDS: KETOROLAC 30 MG/ML VIAL (*BKC) IV PUSH ×2 (03:09→09:17)
[2022-02-02] MEDS: DEXTROSE 5%/0.45% SOD CHL 1,000 ML 125 ML IV CONT (04:58)
[2022-02-02] MEDS: HYDROcodone/acetaminophen (*CRX) 10-325 MG TABLET 1 TAB PO ×3 (05:02→20:39)
[2022-02-02] MEDS: DOCUSATE SODIUM 100 MG CAPSULE PO (09:21)
[2022-02-02] MEDS: MULTIVIT/MIN/PREN/FOL AC/IRON TABLET 1 TAB PO (09:21)
[2022-02-02] MEDS: buPROPion HCL XL (24 HR) 150 MG TABCR PO (09:29)
--- NOTE | 2022-02-02 09:41 | PM.OBPNVD ---
OB - PN: Subj Subjective Date/time seen: 02/02/22 0714 Patient comments: pain well controlled baby status: doing well and nursing well feeding status: exclusively breast feeding OB - PN: Obj Data Labs CBC & Chem 7: 01/31/22 18:47 Labs: am CBC pending OB - PN A/P Plan day: 1 Plan: routine care Time Spent With Patient Time: Total time spent is greater than 50% in coordination of care (as documented) at patient's floor/unit and/or counseling patient: Review of Systems Review of Systems: Resting in bed. Tolerating fluids and crackers. No nausea. All systems reviewed & are unremarkable except as noted in HPI and below Exam Const: General: comfortable and no acute distress Orientation/consciousness: patient oriented x3 Resp: Effort & Inspection: normal respiratory effort and able to speak in complete sentences Auscultation: clear to auscultation bilaterally Cardio: Rate: regular rate Peripheral pulses: Peripheral pulses 2+ throughout GI: Inspection: normal to inspection Auscultation: normal bowel sounds : General: Yes bladder normal to palpation Other: Fundus firm Urinary Catheter: Urinary Catheter: patent and draining Skin: General skin exam: normal color Other: Abdominal dressing clean, dry, and intact. Neuro: General: patient oriented x3 Cognition (Neuro): normal cognition Speech: normal speech Extrem: General: normal to inspection Psych: Appearance: grossly normal Mental Status: mental status grossly normal Affect: normal affect Thought process: Normal thought process present
--- NOTE | 2022-02-02 11:58 | PC.NURSE ---
Called Dr. Weir to clarify RHogam order. Informed pt had a dose of RHogam on Saturday01/26/22 after falling and hitting her abdomen and then delivered on 02/01/22. Dr. Weir confirmed that pt does NOT need another dose of Rhogam post delivery.
[2022-02-02 12:34] LABS: Basophils Absolute Auto 0.1 K/mm3 (0.0-0.1); Basophils Percent Auto 0.3 % (0.2-1.2); Eosinophils Percent Auto 0.1 % (0-4.4); Hematocrit 32.9 % (37.0-47.0); Hemoglobin 10.6 g/dL (12.0-15.0); Immature Granulocyte Absolute 0.11 K/mm3 (0.00-0.031); Immature Granulocyte Percent A 0.6 % (0-0.5); Lymphocytes Absolute Auto 1.75 K/mm3 (0.9-3.2); Lymphocytes Percent Auto 9.1 % (18.3-44.2); Mean Corpuscular HGB Conc 32.2 g/dl (32-36); Mean Corpuscular Hemoglobin 26.8 pg (26-34); Mean Corpuscular Volume 83.3 fl (80-100); Mean Platelet Volume 9.9 fl (7.4-10.4); Monocytes Absolute Auto 1.2 K/mm3 (0.1-0.6); Monocytes Percent Auto 6.3 % (2.6-8.5); Neutrophils Percent Auto 83.6 % (45.5-73.1); Platelet Count Result 260 k/mm3 (150-375); Red Blood Count 3.95 M/mm3 (4.2-5.4); Red Cell Distribution Width 13.9 % (11.5-14.5); White Blood Count 19.1 K/mm3 (4.5-10.0)
[2022-02-02] MEDS: IBUPROFEN 600 MG TABLET PO ×2 (13:06→20:39)
--- NOTE | 2022-02-02 13:18 | WPDANLDPN2 ---
Anes-Prog Note L&D Date/Time: 02/02/22 13:18 Comfortable throughout: section Neuraxial method: spinal Epidural/Spinal procedure site: clean & non-tender Neuro status: Neuro function grossly intact. Cardiovascular status: normal Respiratory status: normal Airway patency: baseline Mental status: baseline Post-Op hydration status: normal Vital Signs: Last Vital Signs Temp 36.1 C L 02/02/22 12:43 Pulse 76 02/02/22 12:43 Resp 18 02/02/22 12:43 BP 102/47 L 02/02/22 12:43 Pulse Ox 97 02/02/22 12:43 O2 Del Method Room Air 02/02/22 00:40 Pain score (VAS): 08/07 I/O: Intake & Output 02/01/22 02/02/22 02/02/22 23:59 07:59 15:59 Intake Total 1100 1000 Output Total 745 1275 Balance 355 -275 Post-procedural complaints: none Patient feedback: Patient satisfied with anesthetic care.
--- NOTE | 2022-02-02 13:18 | WPDANLDNPN2 ---
Anes-Prog Note L&D-Neuraxial Date/Time: 02/02/22 13:18 Neuraxial medications: intrathecal PF morphine Opiod-related complaints: none Patient feedback: Patient satisfied with post-operative pain management.
--- NOTE | 2022-02-02 15:14 | PC.NURSE ---
[id number] Consulted with patient to assess needs related to . Mother led conversation with her experience with feeding baby so far. Mother works well with her infant with encouragement. Reviewed working with , breast, nipples and how to protect the nipples with an optimal deep latch, good positioning, and good hand washing. Encouraged understanding the benefits of skin to skin, responding to feeding cues, frequencies of feeding 8-12 times in 24 hours (approximately 2-3 hours), duration of feedings, milk production, intake/output feeding sheet and signs of adequate intake encouraging swallowing at the breast. Reviewed positioning and alignment, supporting breast, off-centered (asymmetrical latch) and leading with the chin with big open wide gape. Infant latched optimally to the left breast in cross cradle position. Infant observed to have a nonoptimal latch and mother educated on detaching infant with gentle finger breaking the suction. Mother encouraged to practice changing positions for while mom and are learning. Infant latched to the right breast with football positioning. Infant was visualized as swallowing. After 10-15 min infants latch became non optimal and was detached. Infant demonstrated feeding cues while skin to skin and RN assisted mother with infant to the left breast in football position. Infant latched optimally for 10-15 min, then latch shifted to non-optimal and mother encouraged to detach from the breast. Education given to mother of how to visualize suck/swallow ratios and drinking at the breast. Infant was able to maintain latch without discomfort to mother. Nipple care reviewed with optimal latch and good positioning, and to have clean hands when touching the nipple/breast as needed. Resources used to facilitate learning were used from the visual handout/ tool/mom and baby guide. Mother voiced understanding of the education shared, calling for assistance if the infant does not latch or if there is discomfort with . Reported to the primary RN.
[2022-02-02] MEDS: HYDROmorphone HCL INJ (*CRX) 1 MG/ML SYR 0.5 MG IV PUSH (17:52)
[2022-02-03] MEDS: HYDROcodone/acetaminophen (*CRX) 10-325 MG TABLET 1 TAB PO ×5 (00:04→21:03)
[2022-02-03] MEDS: IBUPROFEN 600 MG TABLET PO ×4 (03:00→22:46)
[2022-02-03 08:30] VITALS: BP 103/53; PULSE 80; RESP 20; TEMP 36.4; O2SAT 100
[2022-02-03] MEDS: MULTIVIT/MIN/PREN/FOL AC/IRON TABLET 1 TAB PO (08:34)
[2022-02-03] MEDS: DOCUSATE SODIUM 100 MG CAPSULE PO ×2 (08:34→16:25)
[2022-02-03] MEDS: buPROPion HCL XL (24 HR) 150 MG TABCR PO (08:34)
[2022-02-03] MEDS: HYDROcodone/acetaminophen (*CRX) 5-325 MG TABLET 1 TAB PO ×2 (09:40→16:25)
--- NOTE | 2022-02-03 11:21 | P.DS_ITS ---
DS: Admitting Diagnosis Discharge Date 02/04/2022 Admitting Diagnosis OB - DS: Summary Hospital Course Hospital Course: Uncomplicated OB Procedures : None OB Procedures Intrapartum: OB Procedures: : None Peripartum Data Procedures: Procedures Operation Date: 02/01/22 21:30 Actual Procedure Side Surgeon p Section Not Applicable Fuentes Urias MD Time Spent with Patient Time attestation: Total time spent providing and/or coordinating discharge services: DS: Data Data Completed and Pending Pending studies at discharge: Pending at discharge 02/01/22 21:58 Surgical [PTH] Routine Labs on day of discharge: Labs from last 24 hours 02/02/22 12:16 WBC 19.1 H RBC 3.95 L Hgb 10.6 L Hct 32.9 L MCV 83.3 MCH 26.8 MCHC 32.2 RDW 13.9 Plt Count 260 MPV 9.9 Immature Gran % (Auto) 0.6 H Neut % (Auto) 83.6 H Lymph % (Auto) 9.1 L [place] % (Auto) 6.3 Eos % (Auto) 0.1 Baso % (Auto) 0.3 Lymph # (Auto) 1.75 [place] # (Auto) 1.2 H Eos # (Auto) 0.0 Baso # (Auto) 0.1 Abs Immat Gran (auto) 0.11 H Absolute Neuts (auto) 16.0 H Absolute Nucleated RBC 0.0 Nucleated RBC % 0.0 Discharge Plan Discharge Discharging Clinician: Kandice Chino Anticipated Discharge Date/Time: 02/05/22 21:46 Patient Disposition: Home, Self-Care Activity: may shower, no straining, may drive after 2 weeks and pelvic rest Diet: as tolerated and regular Wound Care Instructions: incision open to air Patient Instructions: Antibiotic Form Stand Alone Forms: General Discharge Information Follow-up/Referrals: Kandice Chino, CNM [Certified Nurse Surgical Physician Assistant] - (2 weeks for incision check. 6 week visit. ) Discharge Medications: New hydrocodone-acetaminophen 5-325 mg Tablet 1 tablet PO Q3H PRN (Reason: Moderate Pain (4-6)) Qty: 30 0RF ibuprofen 600 mg Tablet 600 mg PO Q6H PRN (Reason: Cramping) Qty: 30 0RF Continued ergocalciferol (vitamin D2) 1,250 mcg (50,000 unit) capsule 50,000 unit PO WEEKLY PNV cmb#95-ferrous fumarate-FA [] 28 mg iron- 800 mcg Tablet 1 tablet PO DAILY Date of admission: 01/31/22 18:09 Primary Care Provider: UNKNOWN,DOCTOR Admitting Provider: Lu Weir Attending physician on admission: Lu Weir Condition: Stable
[2022-02-03 21:00] VITALS: BP 86/56; PULSE 86; RESP 18; TEMP 36.2
[2022-02-03] MEDS: SIMETHICONE 80 MG TAB.CHEW PO (22:45)
[2022-02-04] MEDS: HYDROcodone/acetaminophen (*CRX) 10-325 MG TABLET 1 TAB PO (00:05)
[2022-02-04] MEDS: IBUPROFEN 600 MG TABLET PO ×2 (03:01→09:55)
[2022-02-04] MEDS: HYDROcodone/acetaminophen (*CRX) 5-325 MG TABLET 1 TAB PO ×3 (03:02→09:55)
[2022-02-04 08:15] VITALS: BP 97/48; PULSE 71; RESP 16; TEMP 36.3; O2SAT 100
[2022-02-04] MEDS: buPROPion HCL XL (24 HR) 150 MG TABCR PO (08:24)
[2022-02-04] MEDS: MULTIVIT/MIN/PREN/FOL AC/IRON TABLET 1 TAB PO (08:24)
[2022-02-04] MEDS: SIMETHICONE 80 MG TAB.CHEW PO (08:25)
[2022-02-04] MEDS: DOCUSATE SODIUM 100 MG CAPSULE PO (08:25)
[2022-02-07 10:45] VITALS: BP 119/72; PULSE 70; RESP 20; TEMP 36.8; O2SAT 98
== END 2022-02-04 14:00 | disposition home or self-care (01) | DRG 788 ==
LOC: ANHLDR 02-01 21:47 → ANHOB2 02-04 08:50 → ANHLDR 02-07 08:13 → ANHOB2 02-07 08:13
PROVIDERS: Advanced Practice Midwife; Admitting Provider Obstetrics & Gynecology; Visit Provider Obstetrics & Gynecology
PROC: 10D00Z1 Extraction of Products of Conception, Low, Open Approach (ICD-10-PCS; CPT 59514; principal; 2022-02-01 21:30)
DX: O99.344 Other mental disorders complicating childbirth (principal); O69.81X0 Labor and delivery complicated by cord around neck, without compression, not applicable or unspecified; O76 Abnormality in fetal heart rate and rhythm complicating labor and delivery; O42.92 Full-term premature rupture of membranes, unspecified as to length of time between rupture and onset of labor; Z37.0 Single live birth; Z87.891 Personal history of nicotine dependence; F41.9 Anxiety disorder, unspecified; F32.A Depression, unspecified; Z67.91 Unspecified blood type, Rh negative; O62.1 Secondary uterine inertia; Z3A.40 40 weeks gestation of pregnancy
CPT/HCPCS: 36415; 80307; 85025; 86592; 86850; 86880; 86900; 86901; 86902; 88307; A9270; J0131; J1170; J1885; J2274; J2370; J2405; J2590; J2795; J7120

== ENCOUNTER 2022-12-09 11:26 | Emergency (ER) | payer BC, SELFPAY ==
[2022-12-09 11:38] VITALS: BP 130/64; PULSE 80; RESP 16; TEMP 36.8; O2SAT 100
--- NOTE | 2022-12-09 11:43 | ED.BACK ---
HPI - Back Pain/Injury General Chief Complaint: Back Pain/Injury Stated Complaint: Back Pain Time Seen by Provider: 12/09/22 11:43 Source: patient Mode of arrival: ambulatory Limitations: no limitations History of Present Illness HPI Narrative: 32-year-old female presented for complaint of right lower back pain after injury yesterday. She states she was playing with children on the floor when she felt that she pulled a muscle. Reports pain occasionally shoots down to the foot. Rates pain 7/10. Denies numbness, tingling, weakness, saddle paresthesia or change in bowel or bladder. States this has happened in the past and she has an 'offset' pelvis. Has required PT in the past for treatment. She is taking ibuprofen and applied lidocaine patch to the site. Related Data Home Medications Medication Instructions Recorded Confirmed bupropion HCl 300 mg 24 hr tablet, mg PO 12/09/22 extended release buspirone 5 mg tablet 30 mg 12/09/22 Allergies Allergy/AdvReac Type Severity Reaction Status Date / Time No Known Allergies Allergy Verified 12/09/22 11:35 Review of Systems Review of Systems: CONSTITUTIONAL: Denies body aches, fever, chills EYES: Denies visual changes CARDIOVASCULAR: Denies chest pain, palpitations, or edema. RESPIRATORY: Denies cough or dyspnea. GASTROINTESTINAL: Denies abdominal pain, nausea, vomiting, or diarrhea. SKIN: Denies rash, itching, or wounds. MUSCULOSKELETAL: reports back pain NEUROLOGIC: Denies headache, numbness, tingling, or weakness. All systems reviewed & are unremarkable except as noted in HPI and below PMFSH Past Medical History Medical History (Updated 12/09/22 @ 11:58 by Yamilex Ley APRN) Anxiety Depression Family History Family History Mother Cancer Hypotension Grandparent Diabetes mellitus Social History Social History Smoking status: Former smoker Tobacco type: cigarettes Second hand tobacco smoke exposure: No Smoking end date: 05/29/21 Substance use: never Spiritual care concerns: No Comments At time of signature, I have reviewed and agree with nursing past medical, surgical, social and family history unless otherwise noted. Please see nursing chart for further information. There is no relevant family history pertinent to the presenting complaint Exam Narrative: GENERAL: Appears in pain, in no acute distress. HEAD: Normocephalic, atraumatic. EYES: conjunctivae clear NECK: Supple. full ROM CHEST: Speaks in full sentences. No respiratory distress. HEART: Regular rate and rhythm. Normal and equal peripheral pulses. MUSC: No Vertebral point tenderness. Tender to the right lower back and hip. BLEs with normal strength and sensation, normal range of motion and steady gait with mild limp. No wounds/rashes or ecchymosis, pulse palpable and equal bilaterally, skin warm, dry, pink. Capillary refill less than 3 seconds. Gait steady. SKIN: Warm, dry, no rash. NEURO: Alert and oriented x3. Course Course Emergency Course: Patient is aware of diagnosis, understands and agrees to treatment plan. Anticipatory guidance given. Patient agrees to follow-up as directed and is aware of reasons to seek care at the emergency department. Portions of this record may have been created with voice recognition software Level of Care: Express Care Visit Vital Signs Vital signs: Vital Signs Temperature 98.3 F 12/09/22 11:38 Pulse Rate 80 12/09/22 11:38 Respiratory Rate 16 12/09/22 11:38 Blood Pressure 130/64 12/09/22 11:38 Pulse Oximetry 100 12/09/22 11:38 Oxygen Delivery Room Air 12/09/22 11:38 Temperature 98.3 F 12/09/22 11:38 Pulse Rate 80 12/09/22 11:38 Respiratory Rate 16 12/09/22 11:38 Blood Pressure 130/64 12/09/22 11:38 Pulse Oximetry 100 12/09/22 11:38 Oxygen Delivery
== END 2022-12-09 11:55 | disposition home or self-care (01) ==
PROVIDERS: Emergency Provider Nurse Practitioner Family; PCP Family Medicine
DX: S39.012A Strain of muscle, fascia and tendon of lower back, initial encounter (principal); X58.XXXA Exposure to other specified factors, initial encounter; F41.9 Anxiety disorder, unspecified; F32.A Depression, unspecified; Z87.891 Personal history of nicotine dependence
CPT/HCPCS: 99213; G0463